=== PATIENT | male | born 1955 | race Caucasian/White ===

== ENCOUNTER 2019-11-24 13:47 | Emergency (ER) | payer OTHER, MEDICARE ==
[~2019-11-24] VITALS: Ht 172.7 cm; Wt 81.7 kg
[~2019-11-24 13:47] MED LIST: ALBIPROI INH; AZIT250 PO; PRED20 PO
[2019-11-24] MEDS ORDERED: BUDE6HFA INH (14:33)
[2019-11-24] MEDS ORDERED: ALEN70 PO (14:44)
[2019-11-24] MEDS ORDERED: ALBU90OI INH (14:44)
[2019-11-24] MEDS ORDERED: BUDESONIDE-FO10.2 G1 (14:46)
[2019-11-24] MEDS ORDERED: Vitamin D2000 UNIT PO (14:47)
[2019-11-24] MEDS ORDERED: BUSP5 PO (14:47)
[2019-11-24] MEDS ORDERED: GABA600 PO (14:48)
[2019-11-24] MEDS ORDERED: CYCL10 PO (14:48)
[2019-11-24] MEDS ORDERED: GABA400 PO (14:49)
[2019-11-24] MEDS ORDERED: GUAI200 PO (14:49)
[2019-11-24] MEDS ORDERED: HYDCHL12.5 PO (14:50)
[2019-11-24] MEDS ORDERED: Prinivil10 MG PO (14:50)
[2019-11-24] MEDS ORDERED: IBUP800 PO (14:50)
[2019-11-24] MEDS ORDERED: MAGNESIUM OXID500 MG PO (14:51)
[2019-11-24] MEDS ORDERED: OMEP20ER PO (14:51)
[2019-11-24] MEDS ORDERED: PARO20 PO (14:51)
[2019-11-24] MEDS ORDERED: TERA5 PO (14:52)
[2019-11-24] MEDS ORDERED: B-1100 M2 PO (14:52)
[2019-11-24] MEDS ORDERED: TRAZ50 PO (14:53)
== END 2019-11-24 15:23 | disposition home or self-care (01) ==
LOC: ER 13:47
DX: I88.9 Nonspecific lymphadenitis, unspecified (principal); Z88.0 Allergy status to penicillin; Z87.891 Personal history of nicotine dependence
CPT/HCPCS: 99283

== ENCOUNTER 2022-01-06 12:57 | Emergency (ER) | payer OTHER, MEDICARE ==
[~2022-01-06] VITALS: Ht 172.7 cm; Wt 77.1 kg
[~2022-01-06 12:57] MED LIST changes: +ALBU90OI INH; +ALEN70 PO; +B-1100 M2 PO; +BUDE6HFA INH; +BUDESONIDE-FO10.2 G1; +BUSP5 PO; +CYCL10 PO; +GABA400 PO; +GABA600 PO; +GUAI200 PO; +HYDCHL12.5 PO; +IBUP800 PO; +MAGNESIUM OXID500 MG PO; +OMEP20ER PO; +PARO20 PO; +Prinivil10 MG PO; +TERA5 PO; +TRAZ50 PO; +Vitamin D2000 UNIT PO
[2022-01-06] MEDS ORDERED: Norco 5-325 Ta1 EACH PO (14:36)
== END 2022-01-06 14:36 | disposition home or self-care (01) ==
LOC: ER 12:57
DX: S39.012A Strain of muscle, fascia and tendon of lower back, initial encounter (principal); Z79.899 Other long term (current) drug therapy; Z88.0 Allergy status to penicillin; Z87.891 Personal history of nicotine dependence; Z85.72 Personal history of non-Hodgkin lymphomas
CPT/HCPCS: 99283; A9270

== ENCOUNTER 2022-02-23 09:08 | Inpatient (IN) | payer OTHER ==
[~2022-02-23] VITALS: Ht 172.7 cm; Wt 78.0 kg
[~2022-02-23 09:08] MED LIST changes: +Norco 5-325 Ta1 EACH PO
[2022-02-23 11:13] LABS: Influenza A, PCR NEGATIVE (NEGATIVE); Influenza B, PCR NEGATIVE (NEGATIVE); Resp Syncytial Virus, PCR NEGATIVE (NEGATIVE); SARS-Cov-2 (COVID-19) PCR, MMC NEGATIVE (NEGATIVE)
[2022-02-23 11:30] LABS: Albumin, Blood 2.7 g/dL (3.4-5.0); Albumin/Globulin Ratio 0.7 (0.8-1.8); Bilirubin, Total 1.3 mg/dL (0.1-1.0); Bun/Creatinine Ratio 13.2 (12.0-20.0); Calcium, Blood 8.6 mg/dL (8.5-10.1); Creatinine, Blood 0.68 mg/dL (0.60-1.20); Potassium, Blood 3.5 mmol/L (3.5-5.5); Thyroid Stimulating Hormone 0.319 uIU/mL (0.360-4.800); Total Protein, Blood 6.7 g/dL (6.4-8.2)
[2022-02-23 12:41] LABS: Hematocrit 31.2 % (37.0-53.0); Hemoglobin 11.2 g/dL (13.5-17.5); Mean Corpuscular HGB 32.7 pg (26.0-34.0); Mean Corpuscular HGB Conc 35.9 g/dL (31.5-36.5); Mean Corpuscular Volume 91 fL (80-100); Mean Platelet Volume 8.6 fL (9.1-12.4); Platelet Count 234 K/mm3 (150-400); RDW Coefficient Variation 12.3 % (11.7-14.2); Red Blood Cell Count 3.42 M/mm3 (4.30-5.90)
[2022-02-23 13:12] LABS: BAND PERCENT MAN 11 % (0-8); BASOPHILS PERCENT MAN 0 % (0-2); EOSINOPHILS PERCENT MAN 0 % (0-6); LYMPHOCYTES ABSOLUTE MAN 0.67 K/mm3 (0.84-5.20); LYMPHOCYTES PERCENT MAN 7 % (21-46); MONOCYTES ABSOLUTE MAN 0.28 K/mm3 (0.16-1.47); MONOCYTES PERCENT MAN 3 % (4-13); NEUTROPHILS ABSOLUTE MAN 8.64 K/mm3 (1.96-9.15); SEG NEUTROPHILS PERCENT MAN 79 % (41-73); TOTAL CELLS COUNTED 100
[2022-02-23 13:19] LABS: Source, Urine Straight Cath
[2022-02-23 13:35] LABS: Blood, Urine 4+ (Neg); Color, Urine Amber (P-Yellow); Glucose Qualitative, Urine Neg (Neg); Ketones, Urine 2+ (Neg); Leukocyte Esterase, Urine 1+ (Neg); Nitrite, Urine Neg (Neg); Protein, Urine 3+ (Neg); Specific Gravity, Urine 1.015 (1.003-1.022); Urobilinogen, Urine 2+ (Normal)
[2022-02-23 14:09] LABS: Appearance, Urine Hazy (Clear); Bilirubin, Urine 1+ (Neg)
[2022-02-23 14:10] LABS: Amorphous Light (0-Heavy); Bacteria Many /hpf; Squamous Epithelial Cells Not Seen /hpf (Few)
[2022-02-23 14:14] LABS: U Amphetamine Screen Not Detected; U Barbituate Screen Not Detected; U Benzodiazapine Screen Not Detected; U Buprenorphine Screen Not Detected; U Cannabinoids Screen Not Detected; U Cocaine Screen Not Detected; U Methadone Screen Not Detected; U Methamphetamine Screen Not Detected; U Opiates Screen Not Detected; U Oxycodone Screen Not Detected; U Phencyclidine Screen Not Detected; U Propoxyphene Screen Not Detected
--- NOTE | 2022-02-23 18:01 | NUR ---
SHIFT SUMMARY PATIENT ADMITTED FROM ER AT 1430. PATIENT SETTLED INTO ROOM. PATIENT ORIENTED TO CALL LIGHT AND HOW TO USE. AT BEDSIDE DURING ADMISSION TO HELP WITH HISTORY. PATIENT DENIES PAIN. PATIENT MEDICATED FOR NAUSEA X1. PATIENT VISIBLY SHORT OF BREATH WITH RESP 25-30. SATS MAINTAIN ABOVE 95%, EVEN WITH ACTIVITY, BUT PATIENT HAS INCREASED SOB. PATIENT IS A&O X3, OCCASSIONALLY CONFUSED. REDIRECTS WELL. DOES NEED FREQUENT REMINDERS TO USE CALL LIGHT. POWERGLIDE PLACED THIS EVENING. PATIENT IS EATING AND DRINKING WELL. PATIENT IS PLEASANT AND COOPERATIVE WITH CARE.
[2022-02-23 19:30] LABS: Adenovirus F 40/41 Not Detected (NOT DETECT); Astrovirus Not Detected (NOT DETECT); Campylobacter Sp Not Detected (NOT DETECT); Cryptosporidium Not Detected (NOT DETECT); Cyclospora Cayetanensis Not Detected (NOT DETECT); E. Coli O157 Not Detected (NOT DETECT); Entamoeba Histolytica Not Detected (NOT DETECT); Enteroaggregative E. coli-EAEC Not Detected (NOT DETECT); Enteropathogenic E. coli-EPEC Detected (NOT DETECT); Enterotoxigenic E. coli-ETEC Not Detected (NOT DETECT); Giardia Lamblia Not Detected (NOT DETECT); Norovirus GI/GII Not Detected (NOT DETECT); Plesiomonas Shigelloides Not Detected (NOT DETECT); Rotavirus A Not Detected (NOT DETECT); Salmonella Sp Not Detected (NOT DETECT); Sapovirus Not Detected (NOT DETECT); Shiga Toxin-prod E. coli-STEC Not Detected (NOT DETECT); Shigella/Enteroin E. coli-EIEC Not Detected (NOT DETECT); Vibrio Cholerae Not Detected (NOT DETECT); Vibrio Sp Not Detected (NOT DETECT); Yersinia Enterocolitica Not Detected (NOT DETECT)
--- NOTE | 2022-02-24 04:39 | NUR ---
SHIFT SUMMARY: PT IS A/OX2. HE IS IMPULSIVE ABOUT GETTING OOB. WE ASK WHERE OR WHAT ARE YOU DOING AND HE DOES NOT HAVE AN ANSWER, ALTHOUGH HE CAN ANSWER SOME QUESTIONS APPROPRIATELY. HE IS VERY FORGETFUL ABOUT BEING ATTACHED TO THE IV PUMP. PER TELE: . HE CONTINUES TO HAVE SOME SOB, BUT O2 SATS ARE >92% WHILE IN BED AND AMBULATING. HE IS A SBA TO THE BR. ALTHOUGH STEADY, HE HAS AN ALARM SET D/T THE IMPULSIVENESS. POWERGLIDE TO JUANA IS PROTECTED BY [employer], AND IT DRAWS WELL FOR LABS. WE WILL CONTINUE TO MONITOR FREQUENTLY.
[2022-02-24 09:21] LABS: Calcium, Blood 7.9 mg/dL (8.5-10.1); Creatinine, Blood 0.72 mg/dL (0.60-1.20); Potassium, Blood 3.3 mmol/L (3.5-5.5)
[2022-02-24] MEDS ORDERED: FLOMAX0.4 MG PO (10:34)
--- NOTE | 2022-02-24 15:22 | NUR ---
SHIFT SUMMARY PT AWAKE DURING SHIFT REPORT, CONSTANTLY OOB AND TRYING TO WALK AROUND, SETTING BED ALARM OFF. PT VERY CONFUSED AND DISORIENTED. DENIED NEEDS. DID NOT KNOW WHY HE WOULD GET UP OR WHAT HE WANTED, JUST STATE "I DON'T KNOW", AND GO BACK TO BED. VEST RESTRAINT PLACED FOR SAFETY, PT UNSTEADY AND PULLING ON IV SITE EVERY TIME UP OOB. IV ABX AND IVF'S INFUSING PER EMAR. PT SEEMS TO BE A LITTLE BETTER THIS AFTERNOON THAN IN THE MORNING. CALLING OUT TO GET UP TO BTHRM NOW. URINE NOT DRK ORANGE AT START OF SHIFT. DR LONGORIA NOTIFIED FOR HOME MEDICATIONS; ORDERED AND GIVEN PER EMAR. PT ABLE TO SLEEP SOME THIS AFTERNOON WELL. PER REPORT, PT DID NOT SLEEP AT ALL LAST NIGHT. P/T HERE THIS AM TO SEE PT, BUT UNABLE TO WORK WITH HIM VERY MUCH, PT WAS UNABLE TO FOLLOW ANY DIRECTIONS AT THAT TIME. PT IS A LITTLE MORE ABLE TO UNDERSTAND AND WILL REDIRECT THIS AFTERNOON. AND DAUGHTER IN TO VISIT, OFF AND ON TODAY. BED ALARM ON FOR SAFETY. CALL LT IN REACH.
[2022-02-25 05:43] LABS: Bun/Creatinine Ratio 13.3 (12.0-20.0); Calcium, Blood 7.9 mg/dL (8.5-10.1); Creatinine, Blood 0.68 mg/dL (0.60-1.20); Potassium, Blood 3.3 mmol/L (3.5-5.5)
--- NOTE | 2022-02-25 06:04 | NUR ---
SHIFT SUMMARY: PT SEEMS TO BE MORE ORIENTED, BUT REMAINS IMPULSIVE. HE DOES NOT USE THE CALL BUTTON FOR NEEDS AND TRIES TO GET OOB ON HIS OWN. HE HAS BEEN EDUCATED MANY TIMES, BUT STILL DOES NOT FOLLOW COMMANDS. HE DOES REMAIN IN THE JENNY VEST. THE BED IS IN THE LOWEST POSITION AND CALL LIGHT IS WITHIN REACH.
--- NOTE | 2022-02-25 17:07 | NUR ---
SHIFT SUMMARY PT'S MENTATION IMPROVED SIGNIFICANTLY SINCE YESTERDAY. PT IS NOW A&O X4 AND ABLE TO FOLLOW DIRECTIONS WELL. VEST RESTRAINT REMOVED AFTER START OF SHIFT, PT STATED AND DEMONSTRATED THAT HE COULD AND WOULD USE CALL LT FOR ASSISTANCE. BED ALARM REMAINED ON FOR SAFETY. PT'S STRENGTH HAS IMPROVED SOME WELL, THOUGH HE DOES GET VERY SOB WITH EXERTION. PT WAS USING FWW WITH SBA TO GO INTO BTHRM FREQUENTLY TO VOID, BUT ENCOURAGED BY R/T AND NURSING STAFF TO USE URINAL AT BEDSIDE MUCH POSSIBLE D/T INCREASED SOB WITH ACTIVITY. PT HAS DONE BETTER DOING SO. DR LONGORIA IN TO SEE PT THIS AM; IV STEROIDS ORDERED AND GIVEN PER EMAR D/T EXP WHEEZES THRU OUT. IVF'S CONTINUED WELL. PT TO STAY AT LEAST ONE MORE DAY. SODIUM LEVEL IMPROVING SLOWLY; SEE CHART. PT IS VOIDING MUCH MORE TODAY AND URINE COLOR IS NOW CL PALE YELLOW INSTEAD OF DRK ORANGE. PT ALSO ABLE TO PARTICIPATE WITH THERAPY TODAY WELL. PT HAS BEEN PLEASANT AND CO-OP WITH CARE TODAY. IN TO VISIT AGAIN THIS AM AND WILL RETURN TOMORROW. PT ALSO EATING MORE TODAY, INCREASING AMT EACH MEAL. RESTING QUIETLY WITH TV ON AT THIS TIME. DENIES FURTHER NEEDS. CALL LT IN REACH.
--- NOTE | 2022-02-26 05:55 | NUR ---
SUMMARY NO NEW ISSUES NOTED. PT HAS SLEPT WELL DURING SHIFT. PT VOIDING WELL. PT DENIES SOB OR CX PAIN. PT STATES HE IS EAGER TO GO HOME TODAY. CALL LIGHT IN REACH.
[2022-02-26 09:10] LABS: Bun/Creatinine Ratio 18.7 (12.0-20.0); Calcium, Blood 7.9 mg/dL (8.5-10.1); Creatinine, Blood 0.54 mg/dL (0.60-1.20); Potassium, Blood 3.4 mmol/L (3.5-5.5)
[2022-02-26] MEDS ORDERED: PRED20 PO (12:58)
--- NOTE | 2022-02-26 14:32 | NUR ---
PT AWAKE AT START OF SHIFT. WANTING TO HOME. TO RM EARLY. DR LONGORIA ALSO HERE EARLY. NEW LABS ORDERED. PO POTASSIUM ORDERED AND GIVEN; SEE CHART. SODIUM LEVEL WNL'S TODAY; SEE CHART. D/C ORDERS PLACED. MEDS FAXED TO [facility] IN [place] PER REQUEST. PT UP WITH SBA USING FWW TO BTHRM. BREATHING CONTINUES TO IMPROVE. D/C INSTRUCTIONS REVIEWED WITH PT AND ; VERBALIZED UNDERSTANDING. IV SITE D/C'D WNL'S. PT ASSISTED OUT TO 'S CAR VIA W/C.
== END 2022-02-26 13:44 | disposition home or self-care (01) | DRG 871 ==
LOC: ER 09:08 → MEDS 13:17
PROVIDERS: Emergency Medicine; ADMIT Internal Medicine
DX: A41.51 Sepsis due to Escherichia coli [E. coli] (principal); G92.8 Other toxic encephalopathy; E87.1 Hypo-osmolality and hyponatremia; N39.0 Urinary tract infection, site not specified; A04.4 Other intestinal Escherichia coli infections; R65.20 Severe sepsis without septic shock; J44.9 Chronic obstructive pulmonary disease, unspecified; Z20.822 Contact with and (suspected) exposure to COVID-19; E87.6 Hypokalemia; Z87.891 Personal history of nicotine dependence; Z88.0 Allergy status to penicillin; Z79.899 Other long term (current) drug therapy
CPT/HCPCS: 0241U; 36415; 51701; 70450; 71045; 80048; 80053; 81001; 83605; 83735; 83930; 83935; 84295; 84300; 84443; 85025; 87040; 87086; 87507; 93005; 93010; 94640; 94664; 94760; 96374-59; 97110; 97161; 97530; 99285-25; A9270; J0456; J0696; J1650; J2405; J2930; J7030; J7050

== ENCOUNTER 2022-09-09 11:30 | Emergency (ER) | payer OTHER ==
[~2022-09-09] VITALS: Ht 172.7 cm; Wt 79.4 kg
[~2022-09-09 11:30] MED LIST changes: +FLOMAX0.4 MG PO
[2022-09-09 12:36] LABS: BASOPHILS ABSOLUTE AUTO 0.02 K/mm3 (0.00-0.23); BASOPHILS PERCENT AUTO 0 % (0-2); EOSINOPHILS ABSOLUTE AUTO 0.05 K/mm3 (0.00-0.68); EOSINOPHILS PERCENT AUTO 1 % (0-6); Hematocrit 41.4 % (37.0-53.0); Hemoglobin 13.7 g/dL (13.5-17.5); IMMATURE GRAN ABSOLUTE AUTO 0.06 K/mm3 (0.00-0.10); IMMATURE GRAN PERCENT AUTO 1 % (0-1); LYMPHOCYTES ABSOLUTE AUTO 1.18 K/mm3 (0.84-5.20); LYMPHOCYTES PERCENT AUTO 13 % (21-46); MONOCYTES ABSOLUTE AUTO 0.67 K/mm3 (0.16-1.47); MONOCYTES PERCENT AUTO 8 % (4-13); Mean Corpuscular HGB 32.9 pg (26.0-34.0); Mean Corpuscular HGB Conc 33.1 g/dL (31.5-36.5); Mean Corpuscular Volume 99 fL (80-100); Mean Platelet Volume 8.5 fL (9.1-12.4); NEUTROPHILS PERCENT AUTO 78 % (41-73); Platelet Count 225 K/mm3 (150-400); RDW Coefficient Variation 14.9 % (11.7-14.2); RDW Standard Deviation 54.4 fL (35.1-46.3); Red Blood Cell Count 4.17 M/mm3 (4.30-5.90); White Blood Cell Count 8.78 K/mm3 (4.00-11.30)
[2022-09-09 13:08] LABS: Albumin, Blood 3.6 g/dL (3.4-5.0); Albumin/Globulin Ratio 1.2 (0.8-1.8); Bilirubin, Total 0.8 mg/dL (0.1-1.0); Bun/Creatinine Ratio 12.4 (12.0-20.0); Calcium, Blood 9.2 mg/dL (8.5-10.1); Creatinine, Blood 0.89 mg/dL (0.60-1.20); Potassium, Blood 3.8 mmol/L (3.5-5.5); Total Protein, Blood 6.6 g/dL (6.4-8.2)
[2022-09-09] MEDS ORDERED: TIZA4 PO (14:28)
[2022-09-09] MEDS ORDERED: Norco 10-325 T1 EACH PO (14:28)
== END 2022-09-09 14:36 | disposition home or self-care (01) ==
LOC: ER 11:30
PROVIDERS: Physician Assistant
DX: S30.1XXA Contusion of abdominal wall, initial encounter (principal); J44.9 Chronic obstructive pulmonary disease, unspecified; I10 Essential (primary) hypertension; W22.8XXA Striking against or struck by other objects, initial encounter; Z88.0 Allergy status to penicillin; Z79.899 Other long term (current) drug therapy; Z79.51 Long term (current) use of inhaled steroids; Z87.891 Personal history of nicotine dependence
CPT/HCPCS: 36415; 74177; 80053; 85025; 99284-25; A9270; Q9967

== ENCOUNTER 2022-12-31 12:54 | Day surgery (SDC) | payer OTHER ==
[~2022-12-31] VITALS: Ht 172.7 cm; Wt 73.0 kg
[~2022-12-31 12:54] MED LIST changes: +Norco 10-325 T1 EACH PO; +TIZA4 PO
--- NOTE | 2022-12-31 14:28 | NUR ---
12/31/22 1428 Ofelia Lockhart [id number], CHELI [id number]
[2022-12-31 14:52] VITALS: BP 131/79
== END 2022-12-31 15:04 | disposition home or self-care (01) ==
LOC: ORSCSDS 12:54
PROVIDERS: Ophthalmology
PROC: 08RJ3JZ Replacement of Right Lens with Synthetic Substitute, Percutaneous Approach (ICD-10-PCS; principal; 2022-12-31 14:30)
DX: H25.13 Age-related nuclear cataract, bilateral (principal); H52.211 Irregular astigmatism, right eye; J44.9 Chronic obstructive pulmonary disease, unspecified; I10 Essential (primary) hypertension; Z79.899 Other long term (current) drug therapy
CPT/HCPCS: J2250; J3010; J3301; J7040; V2632

== ENCOUNTER 2023-01-07 12:06 | Day surgery (SDC) | payer OTHER ==
[~2023-01-07] VITALS: Ht 172.7 cm; Wt 75.6 kg
[2023-01-07] MEDS ORDERED: WIXELA 100-501 EAC1 (12:24)
--- NOTE | 2023-01-07 12:32 | NUR ---
01/07/23 1232 Paula Hall CALL LIGHT WITHIN REACH. TETRACAINE IN LEFT EYE AT 1224 AND PLEDGETT IN AT 1226
[2023-01-07 14:02] VITALS: BP 116/74
== END 2023-01-07 14:15 | disposition home or self-care (01) ==
LOC: ORSCSDS 12:06
PROVIDERS: Ophthalmology
PROC: 08RK3JZ Replacement of Left Lens with Synthetic Substitute, Percutaneous Approach (ICD-10-PCS; principal; 2023-01-07 13:30)
DX: H25.12 Age-related nuclear cataract, left eye (principal); H52.202 Unspecified astigmatism, left eye; Z96.1 Presence of intraocular lens; J44.9 Chronic obstructive pulmonary disease, unspecified; I10 Essential (primary) hypertension; Z79.899 Other long term (current) drug therapy
CPT/HCPCS: J2001; J2250; J3010; J3301; J7040; V2632